=== PATIENT | female | born 1995 | race Asian ===

== ENCOUNTER 2024-03-13 08:31 | Emergency (ER) | payer BC ==
[~2024-03-13] VITALS: Ht 170.2 cm; Wt 56.7 kg
[2024-03-13 08:38] VITALS: BP 123/65; TEMP 98.4
[2024-03-13 09:49] VITALS: O2SAT 100
== END 2024-03-13 09:50 | disposition home or self-care (01) ==
LOC: ER 08:38
DX: R07.89 Other chest pain (principal); Z60.2 Problems related to living alone; V89.2XXA Person injured in unspecified motor-vehicle accident, traffic, initial encounter; Y93.89 Activity, other specified; Y92.89 Other specified places as the place of occurrence of the external cause; Y99.8 Other external cause status
CPT/HCPCS: 71045-TC